=== PATIENT | female | born 1990 | race Hispanic/Latino ===

== ENCOUNTER 2022-01-02 20:34 | Emergency (ER) | payer MEDICAID ==
[~2022-01-02] VITALS: Ht 170.2 cm; Wt 95.3 kg
[2022-01-02 20:53] VITALS: BP 106/70
== END 2022-01-02 21:57 | disposition home or self-care (01) ==
LOC: EDH 20:34
DX: F41.9 Anxiety disorder, unspecified (principal); F32.9 Major depressive disorder, single episode, unspecified

== ENCOUNTER 2022-05-03 17:17 | Emergency (ER) | payer MEDICAID ==
[~2022-05-03] VITALS: Ht 170.2 cm; Wt 90.7 kg
[2022-05-03] MEDS ORDERED: IBUP-2070 PO (17:50)
[2022-05-03] MEDS ORDERED: AMOX1TAB16 PO (17:50)
[2022-05-03] MEDS ORDERED: LIDO20SO MM (17:50)
[2022-05-03] MEDS ORDERED: METH4TAB3 PO (17:50)
[2022-05-03] MEDS ORDERED: KETOROLAC 30MG VIAL (30MG/ML) IVP ONE (18:00)
[2022-05-03] MEDS ORDERED: DEXAMETHASONE SOD PHOSPHATE 4 MG/ML 1ML VIAL IVP ONE (18:00)
[2022-05-03] MEDS ORDERED: CEFTRIAXONE 1G VIAL IVP ONE (18:00)
[2022-05-03] MEDS ORDERED: LIDOCAINE HCL 2% VISCOUS 15 ML UDCUP PO ONE (18:00)
[2022-05-03] MEDS ORDERED: MAG/ALUM/SIMETH 30 ML UDCUP PO ONE (18:00)
[2022-05-03 18:24] VITALS: BP 123/69
[2022-05-08] MEDS ORDERED: ACET-2079 PO (20:21)
== END 2022-05-03 18:05 | disposition home or self-care (01) ==
LOC: EDH 17:17
DX: J02.9 Acute pharyngitis, unspecified (principal); F41.9 Anxiety disorder, unspecified; F32.A Depression, unspecified
CPT/HCPCS: 87880; 96374; 96375; 99284; J0696; J1100; J1885

== ENCOUNTER 2022-07-12 17:14 | Emergency (ER) | payer MEDICAID ==
[~2022-07-12] VITALS: Ht 170.2 cm; Wt 90.7 kg
[~2022-07-12 17:14] MED LIST: ACET-2079 PO; AMOX1TAB16 PO; IBUP-2070 PO; LIDO20SO MM; METH4TAB3 PO
[2022-07-12 17:29] VITALS: BP 98/59
[2022-07-12] MEDS ORDERED: MAG/ALUM/SIMETH 30 ML UDCUP PO ONE (18:00)
[2022-07-12] MEDS ORDERED: ACETAMINOPHEN 325 MG TAB PO ONE (18:00)
[2022-07-12] MEDS ORDERED: 0.9%NACL 1000ML 1,000 ML IV SCH (18:00)
[2022-07-12] MEDS ORDERED: LIDOCAINE HCL 2% VISCOUS 15 ML UDCUP PO ONE (18:00)
[2022-07-12 18:21] LABS: BASOPHILS % (AUTO) 0.7 % (0.0-5.0); EOSINOPHILS % (AUTO) 1.4 % (0.0-8.0); LYMPHOCYTES % (AUTO) 16.9 % (21.0-51.0); MEAN CORPUSCULAR HEMOGLOBIN 29.3 pg (27.0-33.0); MEAN CORPUSCULAR HGB CONC 34.1 g/dL (32.0-36.0); MEAN CORPUSCULAR VOLUME 85.9 fL (79-99); MONOCYTES % (AUTO) 8.1 % (3.0-13.0); NEUTROPHILS % (AUTO) 72.4 % (40.0-77.0); PLATELET COUNT (AUTO) 360 K/uL (130-400); RED BLOOD CELL COUNT(AUTO) 4.54 MIL/uL (4.00-5.50); RED CELL DISTRIBUTION WIDTH 14.4 % (11.0-15.5); WHITE BLOOD COUNT (AUTO) 15.9 K/uL (4.8-10.8)
[2022-07-12 18:26] LABS: APPEARANCE,URINE CLEAR (CLEAR); BILIRUBIN,URINE NEGATIVE (NEGATIVE); GLUCOSE, URINE (UA) NEGATIVE (NEGATIVE); KETONES,URINE NEGATIVE (NEGATIVE); LEUKOCYTE ESTERASE ,URINE NEGATIVE (NEGATIVE); NITRATE,URINE NEGATIVE (NEGATIVE); OCCULT BLOOD,URINE NEGATIVE (NEGATIVE); PROTEIN,URINE NEGATIVE (NEGATIVE); UROBILINOGEN,URINE 0.2 mg/dL (0.2-1.0)
[2022-07-12 18:27] LABS: HCG,QUALITATIVE URINE NEGATIVE (NEGATIVE)
[2022-07-12 18:30] LABS: CREATININE 0.7 mg/dL (0.5-1.5); POTASSIUM 3.7 mmol/L (3.5-5.1)
[2022-07-12 18:31] LABS: COLOR,URINE Yellow (YELLOW)
[2022-07-12 18:37] LABS: ALBUMIN 3.1 g/dL (3.5-5.0); TOTAL PROTEIN, SERUM 6.6 g/dL (6.0-8.3)
[2022-07-12] MEDS ORDERED: IBUP-2071 PO (18:52)
== END 2022-07-12 19:29 | disposition home or self-care (01) ==
LOC: EDH 17:14
DX: J06.9 Acute upper respiratory infection, unspecified (principal); J02.9 Acute pharyngitis, unspecified; E86.0 Dehydration; Z20.822 Contact with and (suspected) exposure to COVID-19; F41.9 Anxiety disorder, unspecified; F31.9 Bipolar disorder, unspecified; Z79.1 Long term (current) use of non-steroidal anti-inflammatories (NSAID); Z79.52 Long term (current) use of systemic steroids
CPT/HCPCS: 99283; 96360; 87635; 80053; 85025; 87880; 87804 ×2; 83605; 81003; 81025; 36415; C9803; J7030

== ENCOUNTER 2023-03-07 21:33 | Emergency (ER) | payer MEDICAID ==
[~2023-03-07] VITALS: Ht 170.2 cm; Wt 106.6 kg
[~2023-03-07 21:33] MED LIST changes: +IBUP-2071 PO
[2023-03-07 23:38] VITALS: BP 115/65
[2023-03-07 23:50] LABS: APPEARANCE,URINE CLEAR (CLEAR); BILIRUBIN,URINE NEGATIVE (NEGATIVE); COLOR,URINE LIGHT-YELLOW (YELLOW); GLUCOSE, URINE (UA) NEGATIVE (NEGATIVE); KETONES,URINE NEGATIVE (NEGATIVE); LEUKOCYTE ESTERASE ,URINE NEGATIVE Leu/uL (NEGATIVE); NITRATE,URINE NEGATIVE (NEGATIVE); OCCULT BLOOD,URINE NEGATIVE (NEGATIVE); PH,URINE 6.5 (5.0-8.0); PROTEIN,URINE NEGATIVE (NEGATIVE); UROBILINOGEN,URINE 0.2 mg/dL (0.2-1.0)
[2023-03-08] MEDS ORDERED: D-ME118S47 PO (00:05)
[2023-03-08] MEDS ORDERED: IBUP-2070 PO (00:05)
== END 2023-03-08 00:20 | disposition home or self-care (01) ==
LOC: EDH 21:33
DX: J02.8 Acute pharyngitis due to other specified organisms (principal); B34.9 Viral infection, unspecified; Z79.1 Long term (current) use of non-steroidal anti-inflammatories (NSAID); Z79.52 Long term (current) use of systemic steroids; Z20.822 Contact with and (suspected) exposure to COVID-19
CPT/HCPCS: 99283; 87635; 87880; 87804 ×2; 81003; C9803

== ENCOUNTER 2023-05-10 18:13 | Emergency (ER) | payer MEDICAID ==
[~2023-05-10] VITALS: Ht 170.2 cm; Wt 90.7 kg
[~2023-05-10 18:13] MED LIST changes: +D-ME118S47 PO
[2023-05-10 18:15] VITALS: BP 102/61
[2023-05-10 20:40] LABS: BASOPHILS % (AUTO) 0.7 % (0.0-5.0); EOSINOPHILS % (AUTO) 0.8 % (0.0-8.0); HEMATOCRIT 39.1 % (36-48); LYMPHOCYTES % (AUTO) 24.9 % (21.0-51.0); MEAN CORPUSCULAR HGB CONC 33.5 g/dL (32.0-36.0); MEAN CORPUSCULAR VOLUME 83.5 fL (79-99); MONOCYTES % (AUTO) 6.2 % (3.0-13.0); PLATELET COUNT (AUTO) 529 K/uL (130-400); RED BLOOD CELL COUNT(AUTO) 4.68 MIL/uL (4.00-5.50); RED CELL DISTRIBUTION WIDTH 13.2 % (11.0-15.5); WHITE BLOOD COUNT (AUTO) 11.9 K/uL (4.8-10.8)
[2023-05-10 20:51] LABS: CREATININE 0.5 mg/dL (0.5-1.5); POTASSIUM 3.7 mmol/L (3.5-5.1)
[2023-05-10 21:09] LABS: ALBUMIN 3.5 g/dL (3.5-5.0); TOTAL PROTEIN, SERUM 7.7 g/dL (6.0-8.3)
== END 2023-05-11 00:21 | disposition home or self-care (01) ==
LOC: EDH 18:13
DX: J02.9 Acute pharyngitis, unspecified (principal); Z79.52 Long term (current) use of systemic steroids; Z20.822 Contact with and (suspected) exposure to COVID-19
CPT/HCPCS: 99283; 87635; 80053; 84702; 85025; 87880; 87804 ×2; 36415; C9803